=== PATIENT | female | born 1940 | race Caucasian/White ===

== ENCOUNTER 2019-01-11 17:24 | Emergency (ER) | payer MEDICARE, OTHER ==
[~2019-01-11] VITALS: Ht 170.2 cm; Wt 81.8 kg
[~2019-01-11 17:24] MED LIST: ACTIGALL300 MG PO; ATENOLOL25 MG PO; ATIVAN2 MG OR; ATIVAN2 MG PO; CARAFATE OR; CIPROFLOXACIN250 MG OR; CIPROFLOXACIN500 M1 PO; CIPROFLOXACN500 MG PO; DIOVAN HC2 PO; DIOVAN320 MG OR; FLEXERIL PO; FLEXERIL10 MG PO; HYDROCHLOROT12.5 MG PO; LEVOTHYROXIN50 MC1 PO; LEVOTHYROXIN50 MCG PO; LEVOTHYROXIN75 MCG PO; LORTAB 10 OR; LORTAB 1010 MG PO; LORTAB5 OR; MELOXICAM15 MG PO; PEPCID20 MG PO; PERCOCET 5/321 COMBO PO; PRILOSEC20 MG/CAP PO; PRILOSEC40 MG PO; SEROQUEL25 MG PO; SUCRALFATE1 GM PO; TRAMADOL HCL50 MG PO; ULTRAM50 M1 PO; VERAPAMIL240 M1 PO; VERAPAMIL240 MG OR; VITAMIN D50000 UN1 PO
[2019-01-11 17:59] LABS: HEMATOCRIT 37.9 % (37.0-47.0); HEMOGLOBIN 12.1 g/dl (12.0-16.0); IMMATURE GRANULOCYTES 0.6 % (0.0-5.0); MEAN CELL VOLUME 89.4 fL CALC (80.0-100.0); MEAN CORPUSCULAR HGB 28.5 pG CALC (26.0-32.0); MEAN CORPUSCULAR HGB CONC 31.9 g/L CALC (32.0-36.0); NEUT# 3.92 thou/uL (2.00-7.15); RED BLOOD COUNT 4.24 mill/uL (4.20-5.60); RED CELL DISTRI WIDTH 14.4 % (11.5-15.5)
[2019-01-11] MEDS ORDERED: CLONIDINE0.1 MG PO (17:59)
[2019-01-11] MEDS ORDERED: CARTIA XT120 MG PO (18:00)
[2019-01-11] MEDS ORDERED: SPIRONOLACTONE25 MG PO (18:00)
[2019-01-11] MEDS ORDERED: ATENOLOL25 MG PO (18:01)
[2019-01-11] MEDS ORDERED: LEVOTHYROXIN100 MCG PO (18:01)
[2019-01-11] MEDS ORDERED: TRAMADOL HCL50 MG PO (18:05)
[2019-01-11] MEDS ORDERED: CLONAZEPAM1 MG PO (18:05)
[2019-01-11 18:15] LABS: ANION GAP 17 (6-22 (CALC)); BUN 14 mg/dL (8-23); BUN/CREATININE RATIO 14 (12-20 (CALC)); CARBON DIOXIDE 23 mmol/l (22-30); CHLORIDE 97 mmol/l (95-108); GFR 53 ML/MIN (>=60 (CALC)); GFR FOR AFR.AMER. > 60 ML/MIN (>=60 (CALC)); SODIUM 132 mmol/l (137-146)
[2019-01-11 18:16] LABS: POTASSIUM 5.2 mmol/l (3.5-5.1)
[2019-01-11] MEDS ORDERED: HYDROCO/APAP1 TA9 PO (18:42)
[2019-01-11] MEDS ORDERED: PREDNISONE50 MG PO (18:42)
[2019-01-11 18:48] VITALS: BP 150/80
== END 2019-01-11 18:54 | disposition home or self-care (01) ==
LOC: ED 17:24
PROVIDERS: Family Medicine
DX: R07.89 Other chest pain (principal); I10 Essential (primary) hypertension